=== PATIENT | female | born 2000 | race Caucasian/White ===

== ENCOUNTER 2025-03-12 22:28 | Emergency (ER) | payer SELFPAY ==
[~2025-03-12] VITALS: Ht 162.6 cm; Wt 65.1 kg
[2025-03-13 00:17] LABS: BASO # 0.0 10^3/uL (0.0-0.2); BASO % 0.5 % (0.0-1.0); EOS # 0.0 10^3/uL (0.0-0.5); EOS % 0.1 % (0.0-3.0); LYMPH # 1.3 10^3/uL (1.5-5.0); LYMPH % 14.9 % (24.0-44.0); MONO # 0.5 10^3/uL (0.0-0.8); MONO % 5.9 % (2.0-8.0); NEUTROPHILS # 6.8 10^3/uL (1.5-8.5); NEUTROPHILS % 78.4 % (36.0-66.0); PLATELET COUNT, AUTOMATED 302 10^3/uL (150-450)
[2025-03-13 00:23] LABS: ALT/SGPT 16 U/L (7.0-40); AST/SGOT 17 U/L (<34); CALCIUM LEVEL 9.7 MG/DL (8.5-10.1); CARBON DIOXIDE LEVEL 26 MMOL/L (20-31); CHLORIDE LEVEL 107 MMOL/L (98-107); CREATININE FOR GFR 0.95 MG/DL (0.55-1.30); GLOMERULAR FILTRATION RATE 84.7 (>60); POTASSIUM SERUM 3.8 MMOL/L (3.5-5.1); SODIUM LEVEL 145 MMOL/L (136-145)
[2025-03-13 00:34] LABS: HCG, SERUM QUALITATIVE NEGATIVE (NEGATIVE)
[2025-03-13] MEDS: ONDANSETRON 4MG 2ML VIAL IV ONE (07:50)
[2025-03-13] MEDS: NS (Normal Saline) 0.9% 1,000 ML IV ONE (07:50)
[2025-03-13] MEDS ORDERED: HOME MED LIST COMPLETE! XX SCH (08:15)
[2025-03-13] MEDS ORDERED: ONDA-282 PO (09:37)
[2025-03-13 09:45] VITALS: BP 94/58; TEMP 98.4; O2SAT 98
[2025-03-13] MEDS: CAPSAICIN 0.1% CR 56.6 GM TOP PRN (09:46)
== END 2025-03-13 09:55 | disposition home or self-care (01) ==
LOC: M ED 22:28
DX: F12.19 Cannabis abuse with unspecified cannabis-induced disorder (principal); R11.2 Nausea with vomiting, unspecified; R19.7 Diarrhea, unspecified; Z87.442 Personal history of urinary calculi; Z79.899 Other long term (current) drug therapy
CPT/HCPCS: 80048; 80076; 83690; 84703; 85025; 87486; 87581; 87633; 87798; 96361; 96374; 99285; J2405

== ENCOUNTER 2025-05-15 06:22 | Emergency (ER) | payer SELFPAY ==
[~2025-05-15] VITALS: Ht 162.6 cm; Wt 62.5 kg
[~2025-05-15 06:22] MED LIST: ONDA-282 PO
[2025-05-15 06:49] VITALS: TEMP 96.8
[2025-05-15] MEDS: ONDANSETRON 4MG/2ML VIAL IV ONE (07:37)
[2025-05-15] MEDS: KETOROLAC 30 MG/ML 1 ML VIAL IV ONE (07:38)
[2025-05-15 07:46] LABS: BASO # 0.0 10^3/uL (0.0-0.2); BASO % 0.3 % (0.0-1.0); EOS # 0.0 10^3/uL (0.0-0.5); EOS % 0.2 % (0.0-3.0); LYMPH # 1.7 10^3/uL (1.5-5.0); LYMPH % 11.4 % (24.0-44.0); MONO # 0.9 10^3/uL (0.0-0.8); MONO % 5.7 % (2.0-8.0); NEUTROPHILS # 12.1 10^3/uL (1.5-8.5); NEUTROPHILS % 82.0 % (36.0-66.0); PLATELET COUNT, AUTOMATED 315 10^3/uL (150-450)
[2025-05-15 08:11] LABS: ALT/SGPT 16.0 U/L (7.0-40); AST/SGOT 16.0 U/L (<34)
[2025-05-15 08:39] LABS: KETONE, URINE MANUAL REFLEX 2+ mg/dL (NEGATIVE); PROTEIN, URINE MANUAL REFLEX 1+ mg/dL (NEGATIVE); SP GRAVITY,URINE MANUAL REFLEX 1.030 (1.002-1.035); UROBILINOGEN, UA MANUAL REFLEX NORMAL (NORMAL)
[2025-05-15 08:40] LABS: NITRITE, URINE MANUAL RFX NEGATIVE (NEGATIVE)
[2025-05-15 08:46] LABS: RBC, URINE MAN REFLEX TNTC /hpf (0-3)
[2025-05-15 08:49] LABS: HYALINE CAST, URINE RFX NONE SEEN /lpf (0-1); MICROSCOPIC EXAM RFX PERFORMED; SQUAMOUS EPITHELIAL URINE RFX MOD AMOUNT /hpf (SMALL AMT)
[2025-05-15] MEDS: NS (Normal Saline) 0.9% 1,000 ML IV ONE (11:23)
[2025-05-15] MEDS: MORPHINE 4 MG/ML 1 ML VIAL IV ONE (11:24)
[2025-05-15 13:00] VITALS: BP 94/59; O2SAT 96
[2025-05-15] MEDS ORDERED: ONDA-282 PO (13:02)
[2025-05-15] MEDS ORDERED: TAMS1CAP17 PO (13:02)
== END 2025-05-15 13:15 | disposition home or self-care (01) ==
LOC: M ED 06:22
DX: N20.1 Calculus of ureter (principal); F12.10 Cannabis abuse, uncomplicated; Z79.899 Other long term (current) drug therapy
CPT/HCPCS: 74176; 80047; 80076; 81000; 81015; 83690; 85025; 96361; 96374; 96375; 99285; J1885; J2405; J2765

== ENCOUNTER 2025-05-23 19:17 | Emergency (ER) | payer SELFPAY ==
[~2025-05-23] VITALS: Ht 162.6 cm; Wt 61.4 kg
[~2025-05-23 19:17] MED LIST changes: +TAMS1CAP17 PO
[2025-05-23] MEDS ORDERED: [UNRECOGNIZED DRUG - CODE] PO (19:37)
[2025-05-23 20:13] LABS: BASO # 0.1 10^3/uL (0.0-0.2); BASO % 0.5 % (0.0-1.0); EOS # 0.0 10^3/uL (0.0-0.5); EOS % 0.1 % (0.0-3.0); LYMPH # 1.2 10^3/uL (1.5-5.0); LYMPH % 11.7 % (24.0-44.0); MONO # 0.9 10^3/uL (0.0-0.8); MONO % 8.8 % (2.0-8.0); NEUTROPHILS # 8.3 10^3/uL (1.5-8.5); NEUTROPHILS % 78.6 % (36.0-66.0); PLATELET COUNT, AUTOMATED 289 10^3/uL (150-450)
[2025-05-23 20:38] LABS: ALT/SGPT 13 U/L (7.0-40); AST/SGOT 11 U/L (<34); CALCIUM LEVEL 9.5 MG/DL (8.5-10.1); CARBON DIOXIDE LEVEL 24 MMOL/L (20-31); CHLORIDE LEVEL 101 MMOL/L (98-107); CREATININE FOR GFR 1.28 MG/DL (0.55-1.30); GLOMERULAR FILTRATION RATE 59.3 (>60); POTASSIUM SERUM 3.8 MMOL/L (3.5-5.1); SODIUM LEVEL 139 MMOL/L (136-145)
[2025-05-23 20:42] LABS: HCG, SERUM QUALITATIVE NEGATIVE (NEGATIVE)
[2025-05-23 21:36] LABS: KETONE, URINE AUTO RFX 2+ mg/dL (NEGATIVE); LEUKOCYTE ESTERASE UR AUTO RFX NEGATIVE (NEGATIVE); MUCUS, URINE RFX MODERATE (NEGATIVE); NITRITE, URINE AUTO RFX NEGATIVE (NEGATIVE); RBC, URINE AUTO RFX 3 /HPF (0-3); SQUAM EPITHELIAL CELL UR AURFX 3 /HPF (0-6); WBC, URINE AUTO RFX 6 /HPF (0-3)
[2025-05-23] MEDS: NS (Normal Saline) 0.9% 1,000 ML IV ONE (22:55)
[2025-05-23] MEDS: ONDANSETRON 4MG/2ML VIAL IV ONE (22:55)
[2025-05-23] MEDS: KETOROLAC 30 MG/ML 1 ML VIAL IV ONE (23:09)
[2025-05-23] MEDS: MORPHINE 4 MG/ML 1 ML VIAL IV ONE (23:43)
[2025-05-24 00:47] VITALS: O2SAT 98
[2025-05-24] MEDS: FAMOTIDINE 20 MG/2 ML VIAL IVP ONE (00:57)
[2025-05-24 01:00] VITALS: BP 108/71
[2025-05-24 01:03] VITALS: TEMP 97
[2025-05-28] MEDS ORDERED: IBUP600T42 PO (23:03)
[2025-05-28] MEDS ORDERED: HYDR-3713 PO (23:03)
== END 2025-05-24 01:05 | disposition home or self-care (01) ==
LOC: M ED 19:17
DX: N20.1 Calculus of ureter (principal); Z79.1 Long term (current) use of non-steroidal anti-inflammatories (NSAID); Z79.899 Other long term (current) drug therapy
CPT/HCPCS: 74176; 80048; 80076; 81001; 83690; 84703; 85025; 96361; 96374; 96375; 99284; J1308; J1885; J2405